=== PATIENT | female | born 2005 | race Caucasian/White ===

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

== ENCOUNTER 2023-06-17 12:32 | Outpatient (CLI) | payer OTHER, SELFPAY ==
[2023-06-17 13:50] LABS: Hematocrit 42.4 % (37.0-47.0); Hemoglobin 13.1 g/dL (12.0-15.0); Mean Corpuscular HGB Conc 30.9 g/dl (32-36); Mean Corpuscular Hemoglobin 26.1 pg (26-34); Mean Corpuscular Volume 84.5 fl (80-100); Mean Platelet Volume 10.7 fl (7.4-10.4); Platelet Count Result 350 k/mm3 (150-375); Red Blood Count 5.02 M/mm3 (4.2-5.4); Red Cell Distribution Width 13.3 % (11.5-14.5); White Blood Count 4.5 K/mm3 (4.5-10.0)
[2023-06-17 14:18] LABS: Iron 134 ug/dL (37-170)
[2023-06-17 14:28] LABS: Percent Iron Saturation 35 % (20-50)
== END 2023-06-17 12:33 | disposition home or self-care (01) ==
LOC: ANHLAB 12:35
PROVIDERS: PCP Internal Medicine; Visit Provider Nurse Practitioner Family
DX: D50.9 Iron deficiency anemia, unspecified (principal); K62.5 Hemorrhage of anus and rectum
CPT/HCPCS: 36415; 82728; 83540; 83550; 85027

== ENCOUNTER 2023-07-08 10:50 | Emergency (ER) | payer OTHER, SELFPAY ==
[2023-07-08 10:55] VITALS: BP 116/73; PULSE 96; RESP 16; TEMP 36.6; O2SAT 100
--- NOTE | 2023-07-08 11:19 | ED.URI ---
HPI - URI/Sore Throat General Chief Complaint: Upper Respiratory Infection Stated Complaint: throat swollen, loss of voice Time Seen by Provider: 07/08/23 11:20 Source: patient, RN notes reviewed and old records reviewed Mode of arrival: ambulatory Limitations: no limitations History of Present Illness HPI Narrative: 18-year-old female to [facility] for complaint of sore throat, sinus drainage, hoarseness that started 3 days ago. Patient has attempted to treat at home with DayQuil and Zyrtec with some relief. Patient denies fever, ear pain, chest pain, shortness of breath, difficulty swallowing, allergies. Patient able to tolerate fluids by mouth. Related Data Home Medications Medication Instructions Recorded Confirmed norgestimate 0.25 mg-ethinyl 1 tablet PO DAILY 07/08/23 07/08/23 estradiol 35 mcg tablet (Estarylla) Allergies Allergy/AdvReac Type Severity Reaction Status Date / Time No Known Allergies Allergy Verified 07/08/23 11:10 Review of Systems Review of Systems: All systems reviewed & are unremarkable except as noted in HPI and below Constitutional: Constitutional: Reports as per HPI, Denies body ache(s), Denies chills, Denies fever(s) and Denies poor appetite Eyes: Eyes: Reports no additional eye complaints ENT: Reports as per HPI, Reports hoarseness, Reports nasal discharge and Reports sore throat Cardiovascular: Cardiovascular: Reports no additional cardiovascular complaints, Denies chest pain and Denies dyspnea Respiratory: Respiratory: Reports no additional respiratory complaints, Denies cough and Denies dyspnea Musculoskeletal: Musculoskeletal: Reports no additional musculoskeletal complaints Neurologic: Reports system reviewed and no additional complaints, except as documented Psychiatric: Psychiatric: Reports no additional psychiatric complaints [facility] Past Medical History Medical History Anxiety Surgical History Surgical History H/O adenoidectomy 2010, 2012 History of placement of ear tubes 2010, 2012, 2014 History of tonsillectomy 2010 Family History Family History Father Depression Bipolar 1 disorder Mother Thyroid disorder Sibling Asthma Grandparent Cancer Hypertension Cerebrovascular accident Social History Social History Smoking status: Never smoker Alcohol intake: never Substance use: current Substance use type: marijuana Other substance usage details: sometimes Lack of Transportation: No Lack of Food: Never True Current Housing: I Have Housing Concerned About Future Housing: No Difficulty Paying Gas/Electric Bills: No Difficulty Paying for Meds: No Currently Unemployed: No Education: High School Diploma/GED Difficulty w/ Childcare or Family Care: No Comments At the time of my signature, I reviewed and agree with the nursing past medical, surgical, social, and family history. There is no relevant family history pertinent to the patient complaint. Exam Const: General: cooperative, healthy appearing, comfortable, no acute distress, alert and well nourished Nutritional Appearance: well nourished Orientation/consciousness: patient oriented x3 Limitations: no limitations HENMT: Head: normal to inspection Ears: external ears normal and TM abnormal with fluid behind the TM bilateral (clear) Face/Nose/Sinus: Normal external nose present, Normal nares present, normal facial exam, No erythema and No edema Face and sinus: normal facial exam, no erythema and no edema Mouth: Yes Normal oral and palatal mucosa present Throat: uvula midline, posterior oropharynx abnormal erythema, postnasal drainage, tonsils absent and no uvular edema Eyes: General: appearance normal, both eyes and all r
== END 2023-07-08 11:37 | disposition home or self-care (01) ==
PROVIDERS: Emergency Provider Nurse Practitioner Family; PCP Internal Medicine
DX: J04.0 Acute laryngitis (principal); J06.9 Acute upper respiratory infection, unspecified; F41.9 Anxiety disorder, unspecified
CPT/HCPCS: 87081; 87880; 99213; G0463

== ENCOUNTER 2023-07-31 03:13 | Day surgery (SDC) | payer OTHER, SELFPAY ==
[2023-07-27 15:01] VITALS: BMI 28.0
[2023-07-31 12:56] VITALS: BP 116/63; PULSE 94; RESP 18; TEMP 36.1; O2SAT 100
[2023-07-31] MEDS: LACTATED RINGERS 1,000 ML 150 ML IV CONT (13:02)
--- NOTE | 2023-07-31 13:02 | WPDANESEPPF ---
Anes - Initial Pre Proc Eval Procedure: Operation Date: 07/31/23 14:00 Proposed Procedures p Colonoscopy - Ham Sterling MD Date/Time: 07/31/23 13:02 Surgeon: Ham Sterling MD Pre Op Diagnosis: Hemorrhage of anus and rectum, constipation, unspe Patient Data Age: 18 Gender: F Height: 1.63 m Weight: 71.5 kg Last Vital Signs Temp 97 F L 07/31/23 12:56 Pulse 94 07/31/23 12:56 Resp 18 07/31/23 12:56 BP 116/63 07/31/23 12:56 Pulse Ox 100 07/31/23 12:56 O2 Del Method Room Air 07/31/23 12:56 Allergies Allergy/AdvReac Type Severity Reaction Status Date / Time No Known Allergies Allergy Verified 07/31/23 12:47 Home Medications Medication Instructions Recorded Confirmed Type ferrous sulfate 325 mg (65 mg 325 mg PO DAILY #90 tabs 03/20/23 07/27/23 Rx iron) tablet phentermine 37.5 mg tablet 37.5 mg PO DAILY #30 tabs 06/15/23 07/27/23 Rx linaclotide 72 mcg capsule 72 mcg PO DAILY PRN constipation 07/03/23 07/27/23 Rx (Linzess) #30 caps norgestimate 0.25 mg-ethinyl 1 tablet PO DAILY 07/08/23 07/27/23 History estradiol 35 mcg tablet (Estarylla) venlafaxine 150 mg 150 mg PO QPM #90 caps 07/13/23 07/27/23 Rx capsule,extended release 24 hr Patient hx anesthesia problems: none Family hx anesthesia problems: none Results Review: All pre-operative results and documents have been reviewed as part of the pre-operative evaluation. [facility] Past Medical History Medical History (Updated 07/14/23 @ 09:57 by BLAYNE Leo-C) Anxiety Benign nevus Dysfunction of left eustachian tube Hearing loss, bilateral Impacted cerumen of both ears Iron deficiency anemia Rectal bleeding Surgical History Surgical History H/O adenoidectomy 2010, 2012 History of placement of ear tubes 2010, 2012, 2014 History of tonsillectomy 2010 Family History Family History Father Depression Bipolar 1 disorder Mother Thyroid disorder Sibling Asthma Grandparent Cancer Hypertension Cerebrovascular accident Social History Social History (Updated 07/12/23 @ 14:45 by Mayra Penny CMA) Smoking status: Never smoker Alcohol intake: never Substance use: current Substance use type: marijuana Other substance usage details: 1-2 times a month Do You Feel Safe in your Home?: Yes Lack of Transportation: No Lack of Food: Never True Current Housing: I Have Housing Concerned About Future Housing: No Difficulty Paying Gas/Electric Bills: No Difficulty Paying for Meds: No Currently Unemployed: No Education: High School Diploma/GED Difficulty w/ Childcare or Family Care: No Living arrangements: with friend(s) Spiritual care concerns: No Anes - Eval Final PreProcedure Day of Procedure 07/31/23 13:02 Patient weight: normal Heart: regular rate and rhythm Lungs: clear to auscultation Airway: Mallampati scale class II Neurological: alert and oriented Last oral intake: >/= 8 hours ASA classification: II Emergent: no Anesthetic plan: proceed Anesthesia type and monitoring: general GIVS and standard monitoring Results Review: All pre-operative results and documents have been reviewed as part of the pre-operative evaluation. Informed Consent: The patient's anesthetic plan and its attendant risks and benefits were discussed with the patient/family/POA. Questions were solicited and answers provided to the satisfaction of the patient/family/POA.
--- NOTE | 2023-07-31 13:42 | PM.HPGS ---
History of Present Illness History of Present Illness Consent: Risks, benefits, and alternatives have been discussed and questions answered. Patient agrees to proceed with procedure. Chief complaint: Hemorrhage of anus and rectum, constipation, unspe Narrative: Arnulfo Penny is a 18 year old female with constipation better on linzess, never had colonoscopy Review of Systems Review of Systems: All systems reviewed & are unremarkable except as noted in HPI and below PMFSH Past Medical History Medical History (Updated 07/14/23 @ 09:57 by BLAYNE Leo-C) Anxiety Benign nevus Dysfunction of left eustachian tube Hearing loss, bilateral Impacted cerumen of both ears Iron deficiency anemia Rectal bleeding Surgical History Surgical History H/O adenoidectomy 2010, 2012 History of placement of ear tubes 2010, 2012, 2014 History of tonsillectomy 2010 Family History Family History Father Depression Bipolar 1 disorder Mother Thyroid disorder Sibling Asthma Grandparent Cancer Hypertension Cerebrovascular accident Social History Social History (Updated 07/12/23 @ 14:45 by Mayra Penny, [facility]) Smoking status: Never smoker Alcohol intake: never Substance use: current Substance use type: marijuana Other substance usage details: 1-2 times a month Do You Feel Safe in your Home?: Yes Lack of Transportation: No Lack of Food: Never True Current Housing: I Have Housing Concerned About Future Housing: No Difficulty Paying Gas/Electric Bills: No Difficulty Paying for Meds: No Currently Unemployed: No Education: High School Diploma/GED Difficulty w/ Childcare or Family Care: No Living arrangements: with friend(s) Spiritual care concerns: No Meds Home Medications and Allergies Home Medications Medication Instructions Recorded Confirmed Type ferrous sulfate 325 mg (65 mg 325 mg PO DAILY #90 tabs 03/20/23 07/27/23 Rx iron) tablet phentermine 37.5 mg tablet 37.5 mg PO DAILY #30 tabs 06/15/23 07/27/23 Rx linaclotide 72 mcg capsule 72 mcg PO DAILY PRN constipation 07/03/23 07/27/23 Rx (Linzess) #30 caps norgestimate 0.25 mg-ethinyl 1 tablet PO DAILY 07/08/23 07/27/23 History estradiol 35 mcg tablet (Estarylla) venlafaxine 150 mg 150 mg PO QPM #90 caps 07/13/23 07/27/23 Rx capsule,extended release 24 hr Allergies Allergy/AdvReac Type Severity Reaction Status Date / Time No Known Allergies Allergy Verified 07/31/23 12:47 Vital Signs Vital Signs - 24 hr 07/31/23 12:56 Temperature 97 F L Pulse Rate 94 Respiratory Rate 18 Blood Pressure 116/63 Pulse Oximetry 100 Oxygen Delivery Room Air Exam Const: General: comfortable and no acute distress HENMT: Face/Nose/Sinus: Normal nares present Eyes: General: appearance normal, both eyes and all related structures Neck: Neck: no JVD Resp: Auscultation: clear to auscultation bilaterally Cardio: Rate: regular rate Rhythm: regular rhythm GI: Inspection: non-distended GI Palp: Yes Soft to palpation Skin: General skin exam: normal color Neuro: General: gait normal Speech: normal speech Extrem: General: normal to inspection Psych: Mental Status: mental status grossly normal Assessment and Plan Assessment and plan (1) Constipation: Qualifiers: Constipation type: chronic idiopathic constipation Qualified Code(s): K59.04 - Chronic idiopathic constipation Code(s): K59.00 - Constipation, unspecified Status: Acute Assessment and Plan: colonoscopy
[2023-07-31 13:57] VITALS: BP 96/55; PULSE 75; RESP 18; O2SAT 100
[2023-07-31 14:07] VITALS: BP 104/66; PULSE 70; RESP 18; O2SAT 98
[2023-07-31 14:17] VITALS: BP 114/64; PULSE 61; RESP 17; O2SAT 96
== END 2023-07-31 14:22 | disposition home or self-care (01) ==
PROVIDERS: PCP Internal Medicine; Referring Provider Nurse Practitioner Family; Visit Provider Internal Medicine Gastroenterology
PROC: 0DJD8ZZ Inspection of Lower Intestinal Tract, Via Natural or Artificial Opening Endoscopic (ICD-10-PCS; CPT 45378; principal; 2023-07-31 14:00)
DX: K59.04 Chronic idiopathic constipation (principal); K64.8 Other hemorrhoids; D50.9 Iron deficiency anemia, unspecified; F41.9 Anxiety disorder, unspecified; F12.90 Cannabis use, unspecified, uncomplicated
CPT/HCPCS: 45378; J2704; J7120

== ENCOUNTER 2024-06-24 16:24 | Outpatient (NON) | payer OTHER, SELFPAY ==
--- OUTSIDE RECORDS SUMMARY | 2024-06-24 18:15 | XMS_ITS | Referral Summary ---
Author Organization [facility] Office Building [address] Address [address] [place] [address] Care Team Providers Care Supervisor Special Effects Name Role Phone Nickie Will NP Primary Care Provider Encounters Date Type Department Care Team Description 04/10/2024 Telephone [employer] [address] [place] [address] [address] [place] [address] Vickie Salinas NP Change to generic 04/08/2024 9:40 AM AVIONICS SUPERVISOR Office Visit [facility] ENT [address] [facility] [address] [place] [phone] Pacheco Trujillo MD Dysfunction of left eustachian tube (Primary Dx); Bilateral hearing loss, unspecified hearing loss type; Impacted cerumen, left ear; Unspecified nonsuppurative otitis media, right ear 04/08/2024 10:00 AM AVIONICS SUPERVISOR Procedure visit [facility] Otolaryngology [address] [facility] [address] [place] [phone] Conductive hearing loss of left ear with unrestricted hearing of right ear (Primary Dx) 04/05/2024 Telephone [employer] [address] [place] [address] [address], [place] [address] Vickie Salinas COMPUTER SYSTEMS AUDITOR B/C unavailable 03/27/2024 [facility] [address] [facility] [address] [place] [address] [place] [address] Ava Jhaveri, from Last 3 Months Allergies No known active allergies Medications albuterol HFA (PROVENTIL HFA,VENTOLIN HFA,PROAIR HFA) 90 mcg/actuation inhaler as needed 9 Active FeroSuL 325 mg (65 mg iron) tablet Take 1 tablet (325 mg total) by mouth daily 3 Active montelukast (SINGULAIR) 10 mg tablet Take 1 tablet (10 mg total) by mouth nightly Active phentermine (ADIPEX-P) 37.5 mg tablet 3 Active venlafaxine XR (EFFEXOR-XR) 75 mg 24 hr capsule Take 1 capsule (75 mg total) by mouth every evening 3 Active triamcinolone (KENALOG) 0.1 % cream Apply topically 2 (two) times a day 30 g 1 5 Active drospirenone-et hinyl estradioL (Milli, 28,) 3-0.03 mg per tablet Take 1 tablet by mouth daily 84 tablet 1 5 Active Active Problems Problem Noted Date Diagnosed Date Dysfunction of left eustachian tube 04/08/2024 Decreased libido 12/22/2023 Assessment & Plan (12/22/2023 11:37 AM CDT): Discussed possible causes of decreased sexual desire including physiological reasons such as dyspareunia, vaginal dryness, and low testosterone levels. Mental and environmental stressors, as well as medications (particularly SSRIs) can also have a direct impact on sexual desire. Discussed foreplay and vaginal lubricant. Vulvar irritation 06/21/2023 Assessment & Plan (08/17/2023 8:59 AM CDT): Patient has responded well to triamcinolone cream. Still signs of hypopigmentation, possible lichen planus. Patient will continue with her triamcinolone cream as needed. If symptoms intensify despite treatment, she will follow up with the office. She verbalizes understanding. Assessment & Plan (06/21/2023 9:08 AM CDT): The patient complained of vulvar irritation today. She does have hypopigmentation noted throughout the vulva. She is a little young for lichen sclerosus, we discussed the possibility of another chronic skin condition, possibly lichen planus. She is aware that we would need biopsy the area for confirmation. Suspicion for malignancy is low. I would like to treat her with triamcinolone cream to the area b.i.d. for 7-14 days. I would then like for her to use the triamcinolone cream twice a week. We will plan to see her back in 2 months to reassess the vulva. And see how she responded to the cream. If she does not have improvement, we will proceed with a biopsy. The patient is agreeable to the plan. Social History Tobacco Use Types Packs/Day Years Used Date Smoking Tobacco: Never Smokeless Tobacco: Never Tobacco Cessation:Counseling Given: Not Answered Alcohol Use Standard Drinks/Week Comments Not Currently 0 (1 standard drink = 0.6 oz pur e alcohol) Humiliation, Afraid, Rape, and Kick questionnair e Answer Date Recorded Within the last year, have y ou been afraid of your partner or ex-partner? No 03/09/2023 Within the last year, have y ou been humiliated or emotionally abused in other ways by your partner or ex-partner? No Within the last year, have y ou been kicked, hit, slapped, or otherwise physically hurt by your partner or ex-partner? No 03/09/2023 Within the last year, have y ou been raped or forced to have any kind of sexual activity by your partner or ex-partner? No 03/09/2023 AUDIT-C Answer Date Recorded Q1: How often do you have a drink containing alc ohol? 2-4 times a month 03/09/2023 Q2: How many drinks containi ng alcohol do you have on a typical day when you are drinking? 1 or 2 03/09/2023 Q3: How often do you have si x or more drinks on one occasion? Never 03/09/2023 PHQ-2 Answer Date Recorded PHQ-2 Total Score (If total score is 3 or more points, staff should administer the PHQ-9) 0 03/09/2023 Personal Safety Answer Date Recorded Have you ever been in or are you currently in a harmful physical or emotional relationship or is someone making you feel afraid or unsafe? Denies 06/07/2023 Comments No Sex and Gender Information Value Date Recorded Sex Assigned at Not on file Legal Sex Female 2:02 PM AVIONICS SUPERVISOR Gender Identity Female 08/03/2023 9:47 AM CDT Sexual Orientation Straight 08/03/2023 9: 47 AM CDT Last Filed Vital Signs Vital Sign Reading Time Taken Comments Blood Pressure 124/72 12/22/2023 11:01 AM CDT Pulse 86 06/07/2023 9:55 PM CDT Temperature 36.6 C (97.9 F) 06/07/2023 9:55 PM CDT Respiratory Rate 16 06/07/2023 9:55 PM CDT Oxygen Saturation 100% 06/07/2023 9:55 PM CDT Inhaled Oxygen Concentration - - Weight 77.1 kg (170 lb) 04/08/2024 9:53 AM AVIONICS SUPERVISOR Height 162.6 cm (5' 4 ) 04/08/2024 9:53 AM AVIONICS SUPERVISOR Body Mass Index 29.18 04/08/2024 9:53 AM AVIONICS SUPERVISOR Plan of Treatment Not on file Procedures Procedure Name Priority Date/Time Associated Diagnosis Comments AUDBASE RESULTS 04/08/2024 9:52 AM AVIONICS SUPERVISOR N. GONORRHOEAE/C. TRACHOMATIS AMPLIFICATION Routine 03/09/2023 9:19 AM AVIONICS SUPERVISOR Well woman exam from Last 3 Months or Most Recently Relevant to Health Maintenance Results * AudBase Results (04/08/2024 9:52 AM AVIONICS SUPERVISOR) Provider Scanning AUDIOLOGY SERVICES ORDERABLES Final Result * (ABNORMAL) N. gonorrhoeae/C. trachomatis Amplification Urine (03/09/2023 9:19 AM AVIONICS SUPERVISOR) C. trachomatis RNA Positive(A) Negative [facility] - 01 N. gonorrhoeae RNA Negative Negative [facility] - 01 Urine (None) 03/09/2023 9:19 AM AVIONICS SUPERVISOR 03/10/2023 Comment:none Narrative [facility] - 03/14/2023 8:08 PM AVIONICS SUPERVISOR Performed at: - [facility] [place] [id number] Jewelry Drill Operator: Audrey Amaya MD, Phone: [phone] Beverly Arevalo NP LAB MICROBIOLOGY - GENERAL ORDER JO Final Result Performing Organization Address City/State/[facility] Co al Phone Number [facility] - 01 from Last 3 Months or Most Recently Relevant to Health Maintenance Insurance [facility] H[facility]/PPO Address: [address] [address] [facility] H[facility]/PPO Address: [address] [address] [place] [address] Care Teams Supervisor Special Effects Relationship Specialty Start Date End Date Nickie Will NP [facility] [address] [address] PCP - General Cardiovascular Disease 03/09/23
--- OUTSIDE RECORDS SUMMARY | 2024-06-24 18:15 | XMS_ITS | Clinical Summary ---
Author Organization [facility] Address [address] [place] [address] Care Team Providers Care Office Helper Name Role Phone Mckayla Wilcox SHIFT COMMANDER-SKY CAP Primary Care Provider Source Comments [facility],non-owned Affiliates and Associated Physician Practices is amultiple site organization consisting of ambulatory clinics and hospital sitesin [place], [place], [place] and [place]. This disclosure is being madepursuant to the Care Everywhere program and may not contain all information available regarding this patient. Last updated 17.[employer] [facility] Allergies No known active allergies Medications * Be aware that medications may not be up to date on this document. Alwaysverify current medications with the patient. montelukast (SINGULAIR) 10 MG tablet Take 10 mg by mouth at bedtime Active albuterol HFA (PROVENTIL;VENT FLORA;PROAIR) 108 (90 Base) MCG/ACT inhaler as needed 01/10/2019 Act gertrude Active Problems Problem Noted Date Diagnosed Date Dysfunction of eustachian tube 12/12/2011 Conductive hearing loss 12/12/2011 Otitis media 06/01/2010 Overview (11/27/2014): Tonsillar and adenoid hypertrophy 06/01/2010 Family History Medical History Relation Name Comments Anesthesia Reaction Neg Hx Bleeding Disorders Neg Hx Childhood Hearing Disorder Neg Hx Social History Tobacco Use Types Packs/Day Years Used Date Smoking Tobacco: Never Smokeless Tobacco: Current Comments:mom Alcohol Use Standard Drinks/Week Comments No 0 (1 standard drink = 0.6 oz pur e alcohol) Comments No Sex and Gender Information Value Date Recorded Sex Assigned at Not on file Legal Sex Female 5:42 AM METAL POLISHER AND BUFFER APPRENTICE Gender Identity Not on file Sexual Orientation Not on file Last Filed Vital Signs Vital Sign Reading Time Taken Comments Blood Pressure 120/64 10/17/2018 6:42 PM CDT Pulse 84 10/17/2018 6:42 PM CDT Temperature 36.9 C (98.4 F) 10/17/2018 6:42 PM CDT Respiratory Rate 16 10/17/2018 6:42 PM CDT Oxygen Saturation 100% 12/12/2011 11:10 AM CDT Inhaled Oxygen Concentration - - Weight 64.2 kg (141 lb 8.6 oz) 10/28/2019 1:36 P M CDT Height 162.2 cm (5' 3.86 ) 10/28/2019 1:36 PM CD T Body Mass Index 24.4 10/28/2019 1:36 PM CDT Plan of Treatment Health Maintenance Due Date Last Done Comments HIV SCREENING 2018 HPV VACCINE (1 - 3-dose series) 2018 CHLAMYDIA/GONORRHEA SCREENING 2019 MENINGOCOCCAL (Group B) VACC INE SHARED DECISION-MAKING (1 of 2 - Standard) 2019 HEPATITIS C SCREENING 02/22/2021 DTAP/TDAP/TD VACCINES (1 - Tdap) 2022 HEPATITIS B VACCINE (1 of 3 - 19+ 3-dose series) 2022 COVID-19 VACCINE (1 - 2023-2 5 season) 2023 DEPRESSION SCREENING 02/28/2024 INFLUENZA VACCINE (Season Ended) 2024 ZOSTER VACCINE (1 of 2) 2053 HIB VACCINE Aged Out No longer eligi ble based on patient's age to complete this topic MENINGOCOCCAL GROUPS A/C/Y/W VACCINE Aged Out No longer eligible b ased on patient's age to complete this topic PNEUMOCOCCAL VACCINE Aged Out No long er eligible based on patient's age to complete this topic Medical Devices Implanted Type Area Vending Machine Technician Device Identifier Shelf Expiration Date Model / Serial / Lot Tube Vent Triune Silicon 1.35mm X 5.0mm - [id number] Implanted:Qty: 1 on 12/12/2011 by Vidhi Tatum MD at [facility] 09/27/2016 [id number] / [id number] / [id number] Insurance [employer] [facility] MEDICAID CRITICAL [facility]ESS [facility] CARE Care Teams Office Helper Relationship Specialty Start Date End Date Mckayla Wilcox, SHIFT COMMANDER-SKY CAP [address] [place] [address] [place] [address] PCP - General Nurse Practitioner Family 02/25/19
--- OUTSIDE RECORDS SUMMARY | 2024-06-24 18:15 | XMS_ITS | Clinical Summary ---
[facility] Organization [facility] Address [address] [place] [address] Care Team Providers Care Agent Spa Desk Name Role Phone Nickie Will NP Primary Care Provider [phone] Allergies No known active allergies Medications albuterol [...] The patient is agreeable to the plan. 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 [address] [facility] Medical Office Building [address] [place] [phone] Pacheco Trujillo MD Dysfunction of left eustachian tube (Primary Dx); Bilateral hearing loss, unspecified hearing loss type; Impacted cerumen, left ear; Unspecified nonsuppurative otitis media, right ear 04/05/2024 Telephone [facility] [address] [facility] [address] [place] [address] Vickie Salinas BLIND HANGER B/C unavailable 03/27/2024 Telephone [facility]) - [facility] [address] [facility] 11th [place] [address] [place] [address] Ava Jhaveri MS from Last 3 Months Surgical History Surgery Date Site/Laterality Comments TONSILECTOMY, ADENOIDECTOMY, BILATERAL MYRINGOTOMY AND TUBES ADENOIDECTOMY W/ MYRINGOTOMY AND TUBES Medical History Medical History Date Comments Anxiety Depression History of PCR DNA positive for HSV1 Anemia Asthma Family History Medical History Relation Name Comments Prostate cancer Maternal Grandfather Ovarian cancer Maternal Great-Grandmother uterus cancer Maternal Great-Grandmother Anemia Mother Asthma Mother Thyroid disease Mother Asthma Sister Relation Name Status Comments Maternal Grandfather Maternal Great-Grandmother Other Mother Sister Social History Tobacco Use Types Packs/Day Years [...] on file Legal Sex Female 2:02 PM HAND BLOCKER Gender Identity Female 08/03/2023 9:47 AM CDT Sexual Orientation Straight 08/03/2023 9: 47 AM CDT Obstetrics History Para Term AB IAB SAB Ectopic Multiple Livin g Live Births 0 0 0 0 0 0 0 0 0 0 0 Last Filed Vital Signs Vital Sign Reading Time Taken Comments Blood Pressure 124/72 12/22/2023 11:01 AM CDT Pulse 86 06/07/2023 9:55 PM CDT Temperature 36.6 C (97.9 F) 06/07/2023 9:55 PM CDT Respiratory Rate 16 06/07/2023 9:55 PM CDT Oxygen Saturation 100% 06/07/2023 9:55 PM CDT Inhaled Oxygen Concentration - - Weight 77.1 kg (170 lb) 04/08/2024 9:53 AM HAND BLOCKER Height 162.6 cm (5' 4 ) 04/08/2024 9:53 AM HAND BLOCKER Body Mass Index 29.18 04/08/2024 9:53 AM HAND BLOCKER Plan of Treatment Health Maintenance Due Date Last Done Comments Cervical Cancer Screening 2003 Hepatitis C Screening 2003 HPV Vaccines (2 - 2-dose series) 04/10/2015 10/09/19 15 Meningococcal B Vaccine (1 o f 2 - Standard) 2019 Covid-19 Vaccine (4 - 2023-2 5 season) 2023 07/23/2021, 06/15/2020, 05/25/2020 Influenza Vaccine (#1) 2023 , 12/13/2016, 12/09/2016, Additional history exists Chlamydia and Gonorrhea (GC/ CT) Screening 03/09/2024 03/09/2023 Depression Screening 03/09/2024 03/09/2023 Regular Well Visit/Exam 18-64 03/09/2024 03/09/2023 DTaP/Tdap/Td Vaccine (7 - Td or Tdap) 10/08/2024 10/08/2014, 02/01/2008, 06/01/2004, Additional history exists Hepatitis B Screening Completed 2003 , 2003, 2003, Additional history exists Pneumococcal vaccine <65 Completed 005, 03/04/2004, 2003, Additional history exists Varicella Vaccines Completed 07/16/2007, 03/04/2004 Meningococcal Vaccine Completed 06/17/2020, 015 Procedures Procedure Name Priority Date/Time Associated Diagnosis Comments AUDBASE RESULTS 04/08/2024 9:52 AM HAND BLOCKER N. GONORRHOEAE/C. TRACHOMATIS AMPLIFICATION Routine 03/09/2023 9:19 AM HAND BLOCKER Well woman exam from Last 3 Months or Most Recently Relevant to Health Maintenance Results * AudBase Results (04/08/2024 9:52 AM HAND BLOCKER) Provider Scanning AUDIOLOGY SERVICES ORDERABLES Final Result * (ABNORMAL) N. gonorrhoeae/C. trachomatis Amplification Urine (03/09/2023 9:19 AM HAND BLOCKER) C. trachomatis RNA Positive(A) Negative [facility] - 01 N. gonorrhoeae RNA Negative Negative [facility] - 01 Urine (None) 03/09/2023 9:19 AM HAND BLOCKER 03/10/2023 Comment:none Narrative [facility] - 03/14/2023 8:08 PM HAND BLOCKER Performed at: [facility] [place] [id number] Pressure Washer: Audrey Amaya MD, Phone: [phone] us Beverly Arevalo NP LAB MICROBIOLOGY - GENERAL ORDER JO Final Result [facility] - 01 from Last 3 Months or Most Recently Relevant to Health Maintenance Insurance Member Subscriber Plan / Payer (Ef fective 2020-Present) Name:Arnulfo Penny Relation to Subscriber:Child Name:Mello Penny Date of :1979 (Home) Address: [address] [place] [id number] Payer ID:[id number] (NAIC) Type:[facility] HMO/PPO Address: [address] [place] [phone] [facility] Member Subscriber Plan / Payer (Ef fective 2020-Present) Name:Arnulfo Penny Relation to Subscriber:Child Name:MELLO PENNY Date of :1979 (Home) Address: [address] [place] [address] Payer ID:[id number] (NAIC) Type:[facility] HMO/PPO Address: [address] [place] [phone] Care Teams Agent Spa Desk Relationship Specialty Start Date End Date Nickie Will BLIND HANGER [facility] [facility] [address] [place] [address] PCP - General Cardiovascular Disease 03/09/23
--- OUTSIDE RECORDS SUMMARY | 2024-06-24 18:15 | XMS_ITS | Clinical Summary ---
Author Organization [facility] Address [address] [place] [address] Care Team Providers Care Sewer Maintenance Supervisor Name Role Phone Unavailable Primary Care Provider Unavailabl e Social History Tobacco Use Types Packs/Day Years Used Date Smoking Tobacco: Never Assessed Comments Unknown Sex and Gender Information Value Date Recorded Sex Assigned at Not on file Legal Sex Female 12:57 PM TALENT ACQUISITION PROJECT MANAGER Gender Identity Not on file Sexual Orientation Not on file Plan of Treatment Health Maintenance Due Date Last Done Comments Hepatitis C Virus (HCV) Screening 2003 Human Papillomavirus (HPV) Immunization (2 - 2-dose series) 04/10/2015 10/08/2014 Meningococcal B Immunization (1 of 2 - Standard) 2019 Influenza Immunization (#1) 10/29/202311/27, 12/09/2016, 02/15/2013, Additional history exists SARS-COV-2 Immunization ( season) 2023 06/15/2020, 05/25/2020 Respiratory Syncytial Virus (RSV) Immunization (Adult) (1 - 1-dose 75+ series) 2078 Hepatitis B Immunization Completed 004, 2003, 2003, Additional history exists Pneumococcal Immunization Combined Aged Out 06/01/2004, 03/04/2004, 2003, Additional history exists No longer eligible based on patient's age to complete this topic Measles Mumps Rubella (MMR) Immunization Discontinued 07/16/2007, 03/04/2004 Varicella Immunization Discontinued 07/16/2007, 2004 Hepatitis A Immunization Discontinued 02/01/2008, 06/27 Polio (IPV) Immunization Discontinued 008, 06/01/2004, 2003, Additional history exists DTaP/Tdap/Td Immunization Discontinued 2014, 02/01/2008, 06/01/2004, Additional history exists Meningococcal Immunization (ACWY) Aged Out 10/08/2014 No longer eligible based on patient's age to complete this topic TdaP Immunization Completed 10/08/2014 Rotavirus Immunization Aged Out No lo nger eligible based on patient's age to complete this topic
== END 2024-06-24 16:25 | disposition home or self-care (01) ==
LOC: ANHGOSHLAB 16:24
PROVIDERS: PCP Clinical Nurse Specialist; Visit Provider Clinical Nurse Specialist
DX: R30.0 Dysuria (principal); D64.9 Anemia, unspecified; R10.9 Unspecified abdominal pain
CPT/HCPCS: 87086

== ENCOUNTER 2024-07-16 14:51 | Outpatient (CLI) | payer OTHER, SELFPAY ==
--- OUTSIDE RECORDS SUMMARY | 2024-07-16 14:55 | XMS_ITS | Clinical Summary ---
[facility] Address [address] [place] [address] Care Team Providers Care Hazardous Substances Scientist Name Role Phone Nickie Will NP Primary Care Provider [phone] Allergies No known active allergies Medications albuterol [...] The patient is agreeable to the plan. Surgical History Surgery Date Site/Laterality Comments TONSILECTOMY, [...] on file Legal Sex Female 2:02 PM GLASS LOADING EQUIPMENT TENDER Gender Identity Female 08/03/2023 9:47 AM CDT [...] 77.1 kg (170 lb) 04/08/2024 9:53 AM GLASS LOADING EQUIPMENT TENDER Height 162.6 cm (5' 4 ) 04/08/2024 9:53 AM GLASS LOADING EQUIPMENT TENDER Body Mass Index 29.18 04/08/2024 9:53 AM GLASS LOADING EQUIPMENT TENDER Plan of Treatment Health Maintenance Due Date [...] Procedure Name Priority Date/Time Associated Diagnosis Comments N. GONORRHOEAE/C. TRACHOMATIS AMPLIFICATION Routine 03/09/2023 9:19 AM GLASS LOADING EQUIPMENT TENDER Well woman exam from Last 3 Months or Most Recently Relevant to Health Maintenance Results * (ABNORMAL) N. gonorrhoeae/C. trachomatis Amplification Urine (03/09/2023 9:19 AM GLASS LOADING EQUIPMENT TENDER) C. trachomatis RNA Positive(A) Negative [facility] - 01 N. gonorrhoeae RNA Negative Negative [facility] - 01 Urine (None) 03/09/2023 9:19 AM GLASS LOADING EQUIPMENT TENDER 03/10/2023 Comment:none Narrative [facility] - 03/14/2023 8:08 PM GLASS LOADING EQUIPMENT TENDER Performed at: - [facility] [address] [place] [id number] Director Of Planning: Audrey Amaya MD, Phone: [phone] us Beverly Arevalo NP LAB MICROBIOLOGY - GENERAL ORDER JO Final Result [facility] - 01 from Last 3 Months or Most Recently Relevant to Health Maintenance Insurance [facility] Care Teams Hazardous Substances Scientist Relationship Specialty Start Date End Date Nickie Will NP [address] [place] [address] DR [address] [place] [address] PCP - General Cardiovascular Disease 03/09/23
--- OUTSIDE RECORDS SUMMARY | 2024-07-16 14:55 | XMS_ITS | Clinical Summary ---
Author Organization [facility] [employer] Address [address] [place] [address] Care Team Providers Care Online Advertising Director Name Role Phone Mckayla Wilcox MEDICAL FEE CLERK-STAVE INSPECTOR Primary Care Provider Source Comments [facility] [employer],non-owned Affiliates and Associated Physician Practices is amultiple site organization consisting of ambulatory clinics and hospital sitesin [place], [place], [place] and [place]. This disclosure is being madepursuant to the Care Everywhere program and may not contain all information available regarding this patient. Last updated 17.ORDISSIMO [employer] Allergies No known active allergies Medications * [...] on file Legal Sex Female 5:42 AM CLEANER HOUSEKEEPING Gender Identity Not on file Sexual Orientation [...] this topic Medical Devices Implanted Type Area Cellophane Bath Mixer Device Identifier Shelf Expiration Date Model / Serial / Lot Tube Vent Triune Silicon 1.35mm X 5.0mm - [id number] Implanted:Qty: 1 on 12/12/2011 by Vidhi Tatum MD at [facility] 09/27/2016 [id number] / [id number] / [id number] Insurance [facility] MEDICAID FORMERLY [facility], 1928–1983 CARE Care Teams Online Advertising Director Relationship Specialty Start Date End Date Mckayla Wilcox, MEDICAL FEE CLERK-STAVE INSPECTOR [address] [place] [address] [place] [address] PCP - General Nurse Practitioner Family 02/25/19
--- OUTSIDE RECORDS SUMMARY | 2024-07-16 14:55 | XMS_ITS | Clinical Summary ---
Author Organization [facility] Address [address] [place] [address] Care Team Providers Care Parking Lot Chauffeur Name Role Phone Unavailable Primary Care Provider Unavailabl e Social History Tobacco Use Types Packs/Day Years Used Date Smoking Tobacco: Never Assessed Comments Unknown Sex and Gender Information Value Date Recorded Sex Assigned at Not on file Legal Sex Female 12:57 PM VP SITE Gender Identity Not on file Sexual Orientation [...]
--- OUTSIDE RECORDS SUMMARY | 2024-07-16 14:55 | XMS_ITS | Referral Summary ---
Author Organization [facility] Address [address] [place] [address] Care Team Providers Care Critical Power Technician Name Role Phone Nickie Will NP Primary Care Provider [phone] Allergies No known active allergies Medications albuterol [...] on file Legal Sex Female 2:02 PM GAUGE MACHINE OPERATOR Gender Identity Female 08/03/2023 9:47 AM CDT [...] 77.1 kg (170 lb) 04/08/2024 9:53 AM GAUGE MACHINE OPERATOR Height 162.6 cm (5' 4 ) 04/08/2024 9:53 AM GAUGE MACHINE OPERATOR Body Mass Index 29.18 04/08/2024 9:53 AM GAUGE MACHINE OPERATOR Plan of Treatment Not on file Procedures Procedure Name Priority Date/Time Associated Diagnosis Comments N. GONORRHOEAE/C. TRACHOMATIS AMPLIFICATION Routine 03/09/2023 9:19 AM GAUGE MACHINE OPERATOR Well woman exam from Last 3 Months or Most Recently Relevant to Health Maintenance Results * (ABNORMAL) N. gonorrhoeae/C. trachomatis Amplification Urine (03/09/2023 9:19 AM GAUGE MACHINE OPERATOR) C. trachomatis RNA Positive(A) Negative [facility] - 01 N. gonorrhoeae RNA Negative Negative [facility] - 01 Urine (None) 03/09/2023 9:19 AM GAUGE MACHINE OPERATOR 03/10/2023 Comment:none Narrative [facility] - 03/14/2023 8:08 PM GAUGE MACHINE OPERATOR Performed at: - [facility] [address] [id number] [place] Judge: Audrey Amaya MD, Phone: [phone] us Beverly Arevalo NP LAB MICROBIOLOGY - GENERAL ORDER JO Final Result [facility] - 01 from Last 3 Months or Most Recently Relevant to Health Maintenance Insurance [facility] Care Teams Critical Power Technician Relationship Specialty Start Date End Date Nickie Will NP [facility] [facility] [place] [address] PCP - General Cardiovascular Disease 03/09/23
[2024-07-16 19:32] LABS: Basophils Percent Auto 0.7 % (0.2-1.2); Eosinophils Absolute Auto 0.1 K/mm3 (0-0.3); Eosinophils Percent Auto 1.3 % (0-4.4); Hematocrit 39.1 % (37.0-47.0); Hemoglobin 11.8 g/dL (12.0-15.0); Immature Granulocyte Absolute 0.02 K/mm3 (0.00-0.031); Immature Granulocyte Percent A 0.3 % (0-0.5); Lymphocytes Percent Auto 28.3 % (18.3-44.2); Mean Corpuscular HGB Conc 30.2 g/dl (32-36); Mean Corpuscular Hemoglobin 25.1 pg (26-34); Mean Platelet Volume 11.1 fl (7.4-10.4); Monocytes Absolute Auto 0.4 K/mm3 (0.1-0.6); Monocytes Percent Auto 6.5 % (2.6-8.5); Neutrophils Absolute Auto 3.8 K/mm3 (1.3-6.7); Neutrophils Percent Auto 62.9 % (45.5-73.1); Platelet Count Result 365 k/mm3 (150-375); Red Blood Count 4.71 M/mm3 (4.2-5.4); Red Cell Distribution Width 13.1 % (11.5-14.5)
[2024-07-16 19:56] LABS: Alanine Aminotransferase 24 U/L (6-35); Albumin Level 4.2 g/dL (3.5-5.1); Alkaline Phosphatase 56 U/L (38-126); Anion Gap 5 mmol/L (4-12); Aspartate Amino Transferase 30 U/L (14-36); Bilirubin,Total 0.2 mg/dL (0.2-1.3); Blood Urea Nitrogen 16 mg/dL (7-17); Calcium 9.3 mg/dL (8.4-10.2); Carbon Dioxide 31 mmol/L (22-30); Chloride 102 mmol/L (98-107); Estimated Glomerular Filt Rate > 60; Glucose 97 mg/dL (65-110); Potassium 4.6 mmol/L (3.4-5.0); Sodium 138 mmol/L (137-145)
== END 2024-07-16 14:52 | disposition home or self-care (01) ==
LOC: ANHGOSHLAB 14:51
PROVIDERS: PCP Clinical Nurse Specialist; Visit Provider Clinical Nurse Specialist
DX: D50.9 Iron deficiency anemia, unspecified (principal); D64.9 Anemia, unspecified; R10.9 Unspecified abdominal pain; E53.8 Deficiency of other specified B group vitamins
CPT/HCPCS: 36415; 80053; 82607; 82728; 84443; 85025